=== PATIENT | male | born 1990 | race Caucasian/White ===

== ENCOUNTER 2019-12-27 11:23 | Emergency (ER) | payer OTHER, SELFPAY ==
--- NOTE | 2019-12-27 11:25 | XR_ITS ---
WS: [id number] XR hand RT min 3V* [id number] REASON FOR EXAM: injury FINDINGS: Soft tissue swelling over the hypodense seen or eminence. The phalanges, metacarpals, carpa l show no fractures. XR/XR hand RT min 3V* [id number] IMPRESSION: Tissue swelling of the hand.
[2019-12-27 12:00] VITALS: BP 131/80; PULSE 71; RESP 16; TEMP 36.6; O2SAT 99; BMI 23.6
--- NOTE | 2019-12-27 12:14 | ED_ITS ---
HPI - Extremity Problem General: Chief complaint: Extremity Injury, Upper Stated complaint: RIGHT RING FINGER PAIN Time Seen by Provider: 12/27/19 12:07 History of Present Illness: HPI Narrative: Got finger caught in a space between boards while at work today has swelling in of his finger. Complaint: extremity swelling Onset (ago): hour(s) Pain Consistency: constant Location: right Severity scale (1-10): 4 Quality: aching Radiation: none Associated symptoms: Deny chest pain, fever(s) or rash Review of Systems Const: Denies: fever, chills or body aches Eyes: Denies: change in vision or blurry vision ENMT: Denies: throat pain or nasal congestion Card: Denies: chest pain or shortness of breath on exertion Resp: Denies: shortness of breath, productive cough or non-productive cough GI: Denies: abdominal pain, nausea or vomiting : Denies: difficulty urinating Musc: Reports: extremity pain (Got #4 finger caught between the boards and it was cut the boards for about 10 minutes complains of pain to in the finger.) Skin/Breast: Denies: rash Neuro: Denies: headache Psych: Denies: anxiety or depression Desmond/Lymph: Denies: easy bruising PFSH ED PFSH: Social History Smoking and tobacco status: current every day smoker Physical Exam Const: COMMON NORMALS: no apparent distress, average body habitus and oriented x3 HENMT: COMMON NORMALS: normocephalic HEAD & SCALP: normal to inspection and normocephalic FACE & SINUS: normal facial exam Eye: COMMON NORMALS: conjunctivae normal GENERAL EYE: normal appearance of both eyes CONJUNCTIVA: Yes conjunctivae normal Neck/C-Spine: COMMON NORMALS: no JVD Chest: COMMONS NORMALS: inspection of chest normal Resp: COMMON NORMALS: normal respiratory effort and clear to auscultation bilaterally AUSCULTATION: clear to auscultation bilaterally Cardio: COMMON NORMALS: no JVD, regular rate and regular rhythm RATE: regular rate RHYTHM: regular rhythm GI: COMMON NORMALS: normal to inspection, nondistended, normoactive bowel sounds Extremity: COMMON NORMALS: full ROM NARRATIVE EXTREMITY EXAM: Has swelling to the end of #4 finger no abrasions no deformity mild tenderness no evidence of compartment syndrome presently. Neuro: COMMON NORMALS: oriented x3 Course Vital Signs: Vital signs: Vital Signs Temperature 98 F 12/27/19 12:00 Pulse Rate 71 12/27/19 12:00 Respiratory Rate 16 12/27/19 12:00 Blood Pressure 131/80 12/27/19 12:00 Pulse Oximetry 99 12/27/19 12:00 Discharge Plan Discharge Patient Disposition: Home, Self-Care Clinical Impression: Crush injury Condition: Stable Discharge Orders: Discharge Order (Routine); Ordered 12/27/19 Ordered By: Viraj Salcedo Referrals: Juanito Pop MD [Primary Care Provider] - Discharge Diet: Usual diet Discharge Activity: Increase activity as tolerated Patient Instructions: Compartment Syndrome Activity Restrictions/Additional Instructions: Off work today can return to work tomorrow with light duty not to use right hand if it is not improved significantly. Follow-up here or with company doctor if improvement does not occur. Use ice on extremity as directed. Observe for signs and symptoms of compartment syndrome. Return here if those occur. Coding Level of Care Code ED Education Courses Sales Representative for Татьяна Burger
== END 2019-12-27 12:19 | disposition home or self-care (01) ==
LOC: ER 13:51
PROVIDERS: Emergency Provider Nurse Practitioner Family; Family Provider Family Medicine; PCP Family Medicine
DX: S67.194A Crushing injury of right ring finger, initial encounter (principal); W23.0XXA Caught, crushed, jammed, or pinched between moving objects, initial encounter; F17.200 Nicotine dependence, unspecified, uncomplicated
CPT/HCPCS: 73130; 99281; 99282

== ENCOUNTER → 2020-01-04 15:53 | Outpatient (BNVA) | payer SELFPAY | PROVIDERS: Family Provider Family Medicine; PCP Family Medicine; Visit Provider Nurse Practitioner | DX: R05 Cough (principal); R50.9 Fever, unspecified | CPT/HCPCS: 87804 ==

== ENCOUNTER 2020-01-18 15:54 | Emergency (ER) | payer SELFPAY ==
[2020-01-18 16:23] VITALS: BP 125/75; PULSE 88; RESP 16; TEMP 36.8; O2SAT 100; BMI 22.1
--- NOTE | 2020-01-18 16:25 | XR_ITS ---
WS: [id number] XR chest 1V portable [id number] REASON FOR EXAM: cough/congestion FINDINGS: Comparisons were made to January 22, 2017. The heart mediastinum are normal. The lung kent are well aerated There is small granulomas in both perihilar areas. The apices are normal. XR/XR chest 1V portable [id number] IMPRESSION: Negative chest for active pathology.
[2020-01-18 20:06] VITALS: BP 119/74; PULSE 80; RESP 16; O2SAT 97
--- NOTE | 2020-01-18 21:34 | ED_ITS ---
Entered by Debra Grayson, acting as scribe for Marvin Murrieta DO Jan 18, 2020 15:54 HPI - SOB/Dyspnea General: Chief Complaint: Shortness of Breath/Dyspnea Stated Complaint: CONGESTION COUGH Time Seen by Provider: 01/18/20 21:34 Source: patient Mode of arrival: ambulatory Limitations: no limitations History of Present Illness: HPI Narrative: 29 yo m came to the er pov for shortness of breath. Onset was today. Pt states that he has been having some chest pain, cough and shortness of breath. Pt said that he had a fever last week and has not traveled anywhere recently. Pt is a smoker. MD elicited complaint: shortness of breath, cough and chest pain Context: recent illness Timing: constant Severity: mild Exacerbating factors: coughing Relieving factors: nothing Associated symptoms: Reports chest congestion, chest pain and cough; Deny abdominal pain, fever(s), nausea or vomiting Treatment prior to arrival: none Review of Systems Const: Denies: fever, chills, body aches, change in appetite, fatigue or malaise ENMT: Denies: throat pain, ear pain, nasal discharge or nasal congestion Card: Reports: chest pain Resp: Reports: productive cough and chest congestion GI: Denies: abdominal pain, nausea, vomiting, vomiting blood, coffee grounds in vomit, diarrhea, constipation, bloating, blood in stool or black tarry stool : Denies: flank pain, painful urination, urinary frequency or urinary urgency Skin/Breast: Denies: rash or itching PFSH ED PFSH: Social History Smoking and tobacco status: current every day smoker Physical Exam Const: COMMON NORMALS: average body habitus, oriented x3 and alert GENERAL APPEARANCE: cooperative, comfortable, well kempt and well developed NUTRITIONAL APPEARANCE: obese ORIENTATION/CONSCIOUSNESS: Yes awake, Yes oriented to person and Yes oriented to place HENMT: COMMON NORMALS: normocephalic, head/scalp atraumatic, EAC's normal, TM's normal bilaterally, external nose normal, moist oral mucous membranes and oropharynx normal HEAD & SCALP: normocephalic and atraumatic NOSE: external nose normal EXTERNAL AUDITORY CANAL: EAC's normal TYMPANIC MEMBRANE: TM's normal bilaterally MOUTH: oral and palatal mucosa normal, lip normal and tongue normal THROAT: posterior oropharynx normal and tonsils normal Eye: COMMON NORMALS: PERRL, EOMs intact bilaterally, conjunctivae normal and no scleral icterus CONJUNCTIVA: Yes conjunctivae normal PUPIL: Yes PERRL Neck/C-Spine: COMMON NORMALS: full ROM, no lymphadenopathy, supple, no meningeal signs and thyroid normal THYROID: thyroid normal and asymmetrical Lymph: LYMPHATIC: no lymphadenopathy noted Resp: COMMON NORMALS: normal respiratory effort, no retractions, no use of accessory muscles and clear to auscultation bilaterally AUSCULTATION: clear to auscultation bilaterally Cardio: COMMON NORMALS: regular rate and regular rhythm RATE: regular rate RHYTHM: regular rhythm HEART SOUNDS: no murmurs GI: COMMON NORMALS: normal to inspection, nondistended, normoactive bowel sounds, soft to palpation and no hepatosplenomegaly PALPATION: Yes soft and Yes no hepatosplenomegaly : COMMON NORMALS: Yes no CVA tenderness BLADDER/KIDNEY EXAM: Yes no CVA tenderness Back/Pelvis: COMMON NORMALS: no CVA tenderness LUMBAR SPINE/LOWER BACK: Yes normal to inspection Extremity: COMMON NORMALS: no clubbing, cyanosis or edema, no calf tenderness and no pedal edema Neuro: COMMON NORMALS: oriented x3 SENSORIUM/ORIENTATION: Yes alert, Yes oriented to person and Yes oriented to place MENINGEAL SIGNS: Yes no meningeal signs Psych: APPEARANCE: Yes well kempt Skin: COMMON NORMALS: no rashes or lesions noted and skin turgor normal GENERAL SKIN EXAM: no rashes or lesions noted and turgor normal Course ED course: Exam unremarkable. Believe patient is viral respiratory infection he has had it for some time previously treated with antibiotics is no evidence of active pneumonia. Has not traveled any high risk areas for COVID 19. His flu swabs are negative. We will go ahead and discharge him home and have him use supportive cares start him on Medrol Dosepak continue albuterol as needed Vital Signs: Vital signs: Vital Signs Temperature 98.0 F 01/18/20 21:38 Pulse Rate 80 01/18/20 21:38 Respiratory Rate 18 01/18/20 21:38 Blood Pressure 117/66 01/18/20 21:38 Pulse Oximetry 98 01/18/20 21:38 MDM - SOB/Dyspnea Lab Data: Labs: Lab Results 01/18/20 Range/Units 20:50 Influenza Type A A g Negative (Negative) POC Influenza B Ag Negative (Negative) Discharge Plan Discharge Patient Disposition: Home, Self-Care Clinical Impression: Viral URI with cough Condition: Stable Prescriptions: New Medrol (Gian) 4 mg tablets,dose pack See Rx Instructions .ROUTE .COMPLEX Qty: 21 RF: 0 albuterol sulfate 90 mcg/actuation HFA aerosol inhaler 2 inh INHALATION Q4H PRN (Reason: shortness of breath or wheezing) Qty: 18 RF: 0 No Action acetaminophen [Tylenol] 325 mg tablet 650 mg PO Q6H PRNRF: 0 azithromycin 250 mg tablet See Rx Instructions PO .COMPLEX Qty: 6 RF: 0 Discharge Orders: Discharge Order (Routine); Ordered 01/18/20 Ordered By: Marvin Murrieta Referrals: Juanito Pop MD [Primary Care Provider] - Discharge Diet: Usual diet Discharge Activity: Resume usual activity Discharge Date/Time: 01/18/20 21:55 Coding Level of Care Code ED Commercial Electrician for Chg Fwd Exam Comprehensive The documentation recorded by the Kenan webb Stephanie Lyn, accurately reflects the service I personally performed and the decisions made by Lit obando Curtis L, DO Jan 18, 2020 15:54
[2020-01-18 21:37] LABS: Influenza A by IFA Negative (Negative); Influenza B by IFA Negative (Negative)
[2020-01-18 21:38] VITALS: BP 117/66; PULSE 80; RESP 18; TEMP 36.7; O2SAT 98
== END 2020-01-18 21:55 | disposition home or self-care (01) ==
PROVIDERS: Physician Assistant; Emergency Provider Family Medicine; Family Provider Family Medicine; PCP Family Medicine
DX: J06.9 Acute upper respiratory infection, unspecified (principal); R05 Cough; E66.9 Obesity, unspecified; Z68.22 Body mass index [BMI] 22.0-22.9, adult; F17.200 Nicotine dependence, unspecified, uncomplicated
CPT/HCPCS: 12345; 71045; 87804; 99281; 99283

== ENCOUNTER → 2021-01-25 10:30 | Outpatient (BNVA) | payer OTHER, SELFPAY | PROVIDERS: Family Provider Family Medicine; PCP Family Medicine; Visit Provider Nurse Practitioner Family | DX: R50.9 Fever, unspecified (principal); Z20.822 Contact with and (suspected) exposure to COVID-19 | CPT/HCPCS: 87400; 87635 ==

== ENCOUNTER → 2021-07-24 13:37 | Outpatient (BNVA) | payer OTHER, SELFPAY | PROVIDERS: Family Provider Family Medicine; PCP Family Medicine; Visit Provider Nurse Practitioner Family | DX: Z20.822 Contact with and (suspected) exposure to COVID-19 (principal) | CPT/HCPCS: 87635 ==

== ENCOUNTER 2022-11-22 10:20 | Outpatient (CLI) | payer SELFPAY ==
[2022-11-22 10:53] LABS: Red Blood Count Semen Rare /hpf; Sperm Immotility 50 % (50-60); Sperm Non-Progressive Motility 10 % (5-10); Sperm Progressive Motility 40 % (31-34); Viscosity Semen High Viscosity; White Blood Count Semen Rare /hpf
== END 2022-11-22 10:21 | disposition home or self-care (01) ==
PROVIDERS: Family Provider Family Medicine; PCP Family Medicine; Visit Provider Obstetrics & Gynecology
DX: Z31.69 Encounter for other general counseling and advice on procreation (principal)
CPT/HCPCS: 80503; 89320

== ENCOUNTER 2023-01-23 20:02 | Emergency (ER) | payer OTHER, SELFPAY ==
[2023-01-23 20:14] VITALS: BP 120/68; PULSE 66; RESP 15; TEMP 36.7; O2SAT 99
--- NOTE | 2023-01-23 21:11 | ED_ITS ---
HPI - Wound/Laceration General: Chief Complaint: Wound/Laceration Stated Complaint: head injury Time Seen by Provider: 01/23/23 21:05 History of Present Illness: 32-year-old male patient comes in today with injury to the central forehead. Patient was using a pry bar which slipped cau sing it to bounce back and hit patient in the center forehead. Patient denies loss of consciousness. Patient reports no use of blood thinners. Patient does not recall his last tetanus. Patient appears nontoxic. Patient reports headache. Female significant other says he does not seem like his normal self. Patient denies any use of alcohol or other substances. Associated symptoms: Denies nausea or vomiting Review of Systems General: Reports: 10 or more systems reviewed and unremarkable except in HPI and below Card: Denies: chest pain Resp: Denies: dyspnea GI: Denies: nausea or vomiting Musc: Denies: neck pain Skin/Breast: Reports: new lesions Neuro: Reports: headache(s) PFS ED PFSH: Social History Smoking and tobacco status: current every day smoker Physical Exam Const: COMMON NORMALS: alert HENMT: COMMON NORMALS: TM's normal bilaterally and Normal external nose present HEAD & SCALP: laceration (Central forehead irregular) NOSE: Normal external nose present TYMPANIC MEMBRANE: TM's normal bilaterally MOUTH: Normal oral and palatal mucosa present Neck/C-Spine: COMMON NORMALS: full ROM CERVICAL SPINE: No Cervical spine tenderness Resp: COMMON NORMALS: normal respiratory effort Cardio: COMMON NORMALS: regular rate RATE: regular rate GI: COMMON NORMALS: non-tender Extremity: COMMON NORMALS: full ROM Neuro: SENSORIUM/ORIENTATION: Yes alert Skin: TRAUMA: laceration (1 cm central forehead) irregular Procedures Laceration Laceration 1: Site: face Size (cm): 1 Description: irregular Depth: simple, single layer Pre-repair: wound explored and irrigated extensively Skin layer closed with: other (Skin adhesive) Course Vital Signs: Vital signs: Vital Signs Temperature 98.1 F 01/23/23 20:14 Pulse Rate 70 01/23/23 21:22 Respiratory Rate 16 01/23/23 21:22 Blood Pressure 131/70 01/23/23 21:22 Pulse Oximetry 96 01/23/23 21:22 Oxygen Delivery Me thod 01/23/23 20:14 MDM - Wound/Laceration Medical Decision Making 32-year-old male patient comes in today with complaints of injury to the forehead. On exam patient has a irregular 1 cm laceration to central forehead. Pupils are equal reactive. Patient moves all extremities well. No tenderness is noted along the cervical spine. Differential diagnosis includes laceration, intracranial bleeding, skull fracture, concussion. Wound was cleaned and approximated and secured with skin adhesive. Patient tolerated well. CT of the head was negative for intracranial bleeding or skull fracture. Reviewed exam with patient with recommendations for further treatment and follow-up. Patient reported understanding along with female significant other. Lab Data Radiology Impressions Head CT 01/23/23 21:14 IMPRESSION: No acute intracranial findings. Discharge Plan Discharge Patient Disposition: Home Clinical Impression: Head injury Qualifiers: Encounter type: initial encounter Qualified Code(s): S09.90XA - Unspecified injury of head, initial encounter Laceration of skin of forehead Qualifiers: Encounter type: initial encounter Qualified Code(s): S01.81XA - Laceration without foreign body of other part of head, initial encounter Condition: Stable Prescriptions: No Action acetaminophen [Tylenol] 325 mg tablet 650 mg PO Q6H PRN Label Comments: Pt states he takes 3 tabs buprenorphine HCl 8 mg tablet, sublingual 8 mg sublingual DAILY Discharge Orders: Discharge ED (Routine); Ordered 01/23/23 Ordered By: Home Marshall Discharge Diet: Usual diet Discharge Activity: Increase activity as tolerated Patient Instructions: Head Injury (ED), Skin Adhesive Care (ED) Activity Restrictions/Additional Instructions: Activity as tolerated. Drink plenty of water. Use acetaminophen and ibuprofen for pain. Follow-up with primary care as needed. Return to ED for new concerns. Keep skin warm and dry for the next 48 hours to the wound. Allow skin adhesive to come off on its own. Monitor site for signs of infection such as fever, increased redness and swelling, or new concerns. Coding Level of Care Code ED Women'S Studies Lecturer for Татьяна Burger
--- NOTE | 2023-01-23 21:14 | CTR_ITS ---
PROCEDURE INFORMATION: Exam: CT Head Without Contrast Exam date and time: 01/23/2023 9:25 PM Age: 32 years old Clinical indication: Injury or trauma; Blunt trauma (contusions or hematomas); Patient HX: Accidental blow to frontal from a prybar while changing a tire. C/O frontal MEADOWS. Small lac just superior to nasion. ; Additional info: Head injury, worsening MEADOWS TECHNIQUE: Imaging protocol: Computed tomography of the head without contrast. Radiation optimization: All CT scans at this facility use at least one of these dose optimization techniques: automated exposure control; mA and/or kV adjustment per patient size (includes targeted exams where dose is matched to clinical indication); or iterative reconstruction. REPORTING DATA: Count of CT and Cardiac NM exams in prior 12 months: This patient has received 0 known CTs and 0 known cardiac nuclear medicine studies in the 12 months prior to the current study. COMPARISON: CT cervical spin wo con* [id number] 10/21/2018 12:29 PM RADIATION DOSE METRICS: Total DLP (mGy-cm): 1142.78 FINDINGS: Brain: Normal. No hemorrhage. Unremarkable white matter. No mass effect. Cerebral ventricles: No ventriculomegaly. Paranasal sinuses: Minimal ethmoid sinus opacification. No air-fluid level otherwise. Mastoid air cells: Visualized mastoid air cells are well aerated. Bones/joints: Unremarkable. No acute fracture. Soft tissues: Unremarkable. CT/CT head wo con* [id number] IMPRESSION: No acute intracranial findings.
[2023-01-23 21:22] VITALS: BP 131/70; PULSE 70; RESP 16; O2SAT 96
[2023-01-23] MEDS: tetanus-dipt-pertussis 0.5 mL SDV IM (21:35)
[2023-01-23 22:33] VITALS: BP 111/69; PULSE 54; RESP 16; O2SAT 97
--- NOTE | 2023-01-25 14:49 | DCPLANNER ---
Addendum entered by Lisa Tavarez 01/30/23 12:11: assistant manager trainee called patient due to no primary care physician - no answer at this time Original Note: assistant manager trainee called patient due to no primary care physician - no answer at this time
== END 2023-01-23 22:35 | disposition home or self-care (01) ==
PROVIDERS: Emergency Provider Nurse Practitioner Family
DX: S01.81XA Laceration without foreign body of other part of head, initial encounter (principal); S09.90XA Unspecified injury of head, initial encounter; F17.210 Nicotine dependence, cigarettes, uncomplicated; W20.8XXA Other cause of strike by thrown, projected or falling object, initial encounter; Z23 Encounter for immunization
CPT/HCPCS: 12011; 70450; 90471; 90715; 99284

== ENCOUNTER 2024-08-25 16:13 | Emergency (ER) | payer SELFPAY ==
[2024-08-25 16:16] VITALS: BP 115/71; PULSE 60; RESP 16; TEMP 36.7; O2SAT 97; BMI 23.6
--- NOTE | 2024-08-25 17:13 | ED_ITS ---
HPI - Back Pain/Injury General: Chief Complaint: Back Pain/Injury Stated Complaint: left leg/lower back pain Time Seen by Provider: 08/25/24 17:02 Source: patient Mode of arrival: ambulatory Limitations: no limitations History of Present Illness: Patient is a 34-year-old male who presents the emergency department complaining of left lower back pain onset the past couple weeks. He noticed it Saturday before last, states it acutely worsened last Saturday as he thinks he overdid it at work where he is constantly exerting himself and lifting heavy. He has been using heat pads and has been stretching, reports minimal relief. He notes pain with any range of motion, states it does feel better when he lies flat but it has been hard to get out of bed. He has no distal numbness weakness or paresthesias. No bowel or bladder incontinence. States he has vomited once, but believes he caught a viral bug from family member. Pain is reported to radiate down the left leg above the knee, denies personal history of sciatica. MD elicited complaint: back pain Onset (ago): week(s) Timing: constant and progressively worsening Severity: severe Location: left lower back Radiation: left upper leg Exacerbating factors: movement Relieving factors: supine Associated symptoms: Reports vomiting; Deny chills or fever(s) Treatments prior to arrival: heat therapy Related Data Home Medications Medication Instructions Recorded Confirmed acetaminophen 325 mg tablet 650 mg PO Q6H PRN 01/04/20 04/19/23 (Tylenol) buprenorphine HCl 8 mg sublingual 8 mg sublingual DAILY 01/25/21 04/19/23 tablet Previous Rx's Medication Instructions Recorded doxycycline hyclate 100 mg tablet 100 mg PO BID 7 days #14 tabs 04/19/23 ketorolac 10 mg tablet 10 mg PO Q8H PRN pain #15 tabs 08/25/24 methocarbamol 750 mg tablet 750 mg PO Q8H 5 days #15 tabs 08/25/24 prednisone 20 mg tablet 60 mg (3 x 20 mg) PO ONCE 5 days 08/25/24 #15 tabs Allergies Allergy/AdvReac Type Severity Reaction Status Date / Time aripiprazole [From Abilify] Allergy ADR-Halluci Verified 04/19/23 14:34 nating haloperidol [From Haldol] Allergy ADR-Halluci Verified 04/19/23 14:34 nating risperidone [From Risperdal] Allergy ADR-Halluci Verified 04/19/23 14:34 nating Sulfa (Sulfonamide Allergy ALGY-Hives Verified 04/19/23 14:34 Antibiotics) Review of Systems General: Reports: 10 or more systems reviewed and unremarkable except in HPI and below Const: Denies: fever(s) or chills Card: Denies: chest pain Resp: Denies: dyspnea or productive cough GI: Reports: vomiting : Denies: flank pain Musc: Reports: back pain, extremity pain and limited range of motion; Denies: neck pain, extremity swelling, joint pain, joint swelling, joint redness, joint warmth or muscle weakness Skin/Breast: Denies: rash Neuro: Denies: headache(s), numbness in extremities or weakness in extremities PFSH ED PFSH: Social History Smoking and tobacco/nicotine status: current every day tobacco/nicotine user Physical Exam Const: COMMON NORMALS: no acute distress, patient oriented x3, no limitations, healthy appearing, alert and well nourished HENMT: COMMON NORMALS: normocephalic and atraumatic HEAD & SCALP: normocephalic and atraumatic Neck/C-Spine: COMMON NORMALS: full ROM, supple and no meningeal signs Resp: COMMON NORMALS: normal respiratory effort, No use of accessory muscles and clear to auscultation bilaterally AUSCULTATION: clear to auscultation bilaterally Cardio: COMMON NORMALS: regular rate and regular rhythm RATE: regular rate RHYTHM: regular rhythm Back/Pelvis: OTHER: Mild reproducible tenderness to palpation of the left paralumbar muscles. No spinous process tenderness. No signs of trauma. Under range of motion due to the pain. Positive straight leg raise on the left. Extremity: COMMON NORMALS: normal to inspection, full ROM, capillary refill normal, no joint enlargement and no clubbing, cyanosis or edema Neuro: COMMON NORMALS: patient oriented x3, moves all extremities, no focal motor deficits and no sensory deficits noted SENSORIUM/ORIENTATION: Yes alert MENINGEAL SIGNS: Yes no meningeal signs Skin: COMMON NORMALS: no rashes or lesions noted GENERAL SKIN EXAM: no rashes or lesions noted Course Vital Signs: Vital signs: Vital Signs Temperature 98.1 F 10/22/24 16:16 Pulse Rate 60 08/25/24 16:16 Respiratory Rate 16 08/25/24 16:16 Blood Pressure 115/71 08/25/24 16:16 Pulse Oximetry 97 08/25/24 16:16 Oxygen Delivery Me thod Room Air 08/25/24 16:16 MDM - Back Pain/Injury Medical Decision Making Atraumatic left lower back pain with radiation down the left leg was reported. No history of sciatica. He did have positive straight leg raise testing on the left and this did appear as a clinical picture of sciatica. No imaging warranted at this time, he had no red flag back symptoms to report. He does report relief after receiving Toradol, Decadron, and Norflex IM. Because of this we will encourage him to use work note for limited responsibilities and no further strenuous exertion while symptomatic, and will prescribe short course of steroids and muscle relaxers. Encouraged to follow-up with primary care with any further complaints for further evaluation. No radiology studies performed this visit Discharge Plan Discharge Patient Disposition: Home Clinical Impression: Sciatica Qualifiers: Laterality: left Qualified Code(s): M54.32 - Sciatica, left side Condition: Stable Prescriptions: New prednisone 20 mg tablet 60 mg PO ONCE 5 Days Qty: 15 0RF ketorolac 10 mg tablet 10 mg PO Q8H PRN (Reason: pain) Qty: 15 0RF methocarbamol 750 mg tablet 750 mg PO Q8H 5 Days Qty: 15 0RF No Action acetaminophen [Tylenol] 325 mg tablet 650 mg PO Q6H PRN Patient Comments: Pt states he takes 3 tabs buprenorphine HCl 8 mg tablet, sublingual 8 mg sublingual DAILY lidocaine (PF) 10 mg/mL (1 %) solution 10 mg SUBCUT ONCE Qty: 1 0RF doxycycline hyclate 100 mg tablet 100 mg PO BID 7 Days Qty: 14 0RF Discharge Orders: Discharge ED (Routine); Ordered 08/25/24 Ordered By: Jesus Luis Discharge Diet: As Directed Discharge Activity: Limit activity as instructed Patient Instructions: Sciatica (ED) Activity Restrictions/Additional Instructions: Work note provided. Take medications as prescribed. Continue using heat and other therapeutic remedies as discussed. Follow-up with primary care with any persistence of pain. Return with any new concerning symptoms. Stand Alone Forms: Work/School Release Coding Level of Care Code ED Sales Associate Key Holder for Татьяна Burger
[2024-08-25] MEDS: orphenadrine 30 mg/mL Inj 2 mL 60 MG IM (17:21)
[2024-08-25] MEDS: dexamethasone 10 mg/mL INJ IM (17:22)
[2024-08-25] MEDS: ketorolac 60 mg/2 mL INJ IM (17:22)
== END 2024-08-25 18:14 | disposition home or self-care (01) ==
PROVIDERS: Emergency Provider Physician Assistant
DX: M54.32 Sciatica, left side (principal); R11.10 Vomiting, unspecified
CPT/HCPCS: 96372; 99284; J1100; J1885; J2360

== ENCOUNTER 2025-04-30 17:59 | Emergency (ER) | payer OTHER, SELFPAY ==
[2025-04-30 18:02] VITALS: BP 116/74; PULSE 68; RESP 16; TEMP 36.7; O2SAT 97; BMI 22.1
--- NOTE | 2025-04-30 18:32 | ED_ITS ---
HPI - Wound/Laceration 2 General: Chief Complaint: Wound/Laceration Stated Complaint: lac on head Time Seen by Provider: 04/30/25 18:13 History of Present Illness: Patient is a 34-year-old gentleman that reports here from work with injury. He was working, and a shelf of wheels fell on his head. He had no LOC. He has a laceration to his left frontal head. Denies anticoagulation. This occurred just prior to arrival. Patient did have corneal abrasion yesterday, however has no complaints at this time other than the ongoing eyelid slight edema. Associated symptoms: Denies chills, fever(s), nausea or vomiting Related Data Home Medications ?Medication ?Instructions ?Recorded ?Confirmed acetaminophen 325 mg tablet 650 mg PO Q6H PRN 01/04/20 04/29/25 (Tylenol) buprenorphine HCl 8 mg sublingual 8 mg sublingual PURNIMA Y 01/25/21 04/29/25 tablet Previous Rx's ?Medication ?Instructions ?Recorded cephalexin 500 mg capsule 500 mg PO TID 7 days #21 cap s 03/11/25 cephalexin 500 mg capsule 500 mg PO BID 2 days #4 caps 04/30/25 Allergies Allergy/AdvReac Type Severity Reaction Status Date / Time aripiprazole (From Abilify) Allergy ADR-Halluci Verified 04/30/25 18:06 nating haloperidol (From Haldol) Allergy ADR-Halluci Verified 04/30/25 18:06 nating risperidone (From Risperdal) Allergy ADR-Halluci Verified 04/30/25 18:06 nating Sulfa (Sulfonamide Allergy ALGY-Hives Verified 04/30/25 18:06 Antibiotics) Review of Systems 2 Const: Denies: fever(s), chills or change in appetite Eyes: Denies: change in vision or blurry vision Card: Denies: chest pain or palpitations Resp: Denies: dyspnea or productive cough GI: Denies: abdominal pain, nausea or vomiting : Denies: flank pain or difficulty urinating Musc: Denies: neck pain or back pain Neuro: Reports: headache(s); Denies: lack of coordination, difficulty walking or vertigo Psych: Denies: anxiety or depression Desmond/Lymph: Denies: easy bruising or easy bleeding PFSH ED 2 PFSH: Social History Smoking and tobacco/nicotine status: current every day tobacco/nicotine user Physical Exam 2 Const: COMMON NORMALS: patient oriented x3 HENMT: COMMON NORMALS: external ears normal HEAD & SCALP: laceration left frontal Details of head laceration: linear and stellate Head laceration size: 8 cm; no occipital foramen tenderness and no palpable skull fracture FACE & SINUS: normal facial exam FACE & SINUS IMAGES: 1. laceration EXTERNAL EAR: Yes external ears normal Neck/C-Spine: COMMON NORMALS: full ROM and no lymphadenopathy Lymph: LYMPHATIC: no lymphadenopathy noted Chest: COMMONS NORMALS: normal inspection of the chest Resp: COMMON NORMALS: normal respiratory effort and clear to auscultation bilaterally AUSCULTATION: clear to auscultation bilaterally Cardio: COMMON NORMALS: regular rate and regular rhythm RATE: regular rate RHYTHM: regular rhythm GI: COMMON NORMALS: Normal to inspection, nondistended, normoactive bowel sounds present, Soft to palpation and non-tender PALPATION: Yes Soft to palpation : COMMON NORMALS: Yes no CVA tenderness BLADDER/KIDNEY EXAM: Yes no CVA tenderness Back/Pelvis: COMMON NORMALS: no CVA tenderness Extremity: COMMON NORMALS: normal to inspection, full ROM and capillary refill normal Neuro: COMMON NORMALS: patient oriented x3, CN's II-XII intact bilaterally and moves all extremities Psych: COMMON NORMALS: Normal thought process present, cooperative and speech normal ATTITUDE: Yes agitated SPEECH: Yes normal speech THOUGHT PROCESS: Normal thought process present Skin: NARRATIVE SKIN EXAM: see laceration Procedures Laceration Laceration 1: Site: scalp (left posterior occiput) Size (cm): 5 Description: linear Depth: simple, single layer Local Anesthetic: lidocaine 1% Amount of anesthesia used (mL): 3 Pre-repair: wound explored and irrigated extensively Skin layer closed with: other (staple x8) Size (cm): other (staple) Number of sutures: 8 Technique: other (staple) Course 2 Vital Signs: Vital signs: Vital Signs Temperature 98.0 F 04/30/25 18:02 Pulse Rate 68 04/30/25 18:02 Respiratory Rate 16 04/30/25 18:02 Blood Pressure 116/74 04/30/25 18:02 Pulse Oximetry 97 04/30/25 18:02 Oxygen Delivery Me thod Room Air 04/30/25 18:02 MDM - Wound/Laceration Medical Decision Making Patient is a 34-year-old gentleman that was working, and had wheels fall off a shelf, knocking him forward, and causing laceration in the left frontal area of the scalp. He had a significant history however no LOC. He was checked with cranial nerves II through XII, and also noted normal smells, and no deficiencies were found. PERRLA. No long bone injury. No reason to proceed with CT of the head and neck since there is no midline tenderness on the cervical spine either. This area was stapled, and patient given directions on removing malia and care. All radiology interpretation(s) finalized by discharge Discharge Plan Discharge Patient Disposition: Home Clinical Impression: Laceration of scalp Qualifiers: Encounter type: initial encounter Qualified Code(s): S01.01XA - Laceration without foreign body of scalp, initial encounter Condition: Stable Prescriptions: New cephalexin 500 mg capsule 500 mg PO BID 2 Days Qty: 4 0RF No Action acetaminophen [Tylenol] 325 mg tablet 650 mg PO Q6H PRN Patient Comments: Pt states he takes 3 tabs buprenorphine HCl 8 mg tablet, sublingual 8 mg sublingual DAILY lidocaine (PF) 10 mg/mL (1 %) solution 10 mg SUBCUT ONCE Qty: 1 0RF cephalexin 500 mg capsule 500 mg PO TID 7 Days Qty: 21 0RF Discharge Orders: Discharge ED (Routine); Ordered 04/30/25 Ordered By: Flaca Farley Discharge Diet: Usual diet Discharge Activity: Resume usual activity Patient Instructions: Concussion (ED), Staple Care (ED), Patient Portal & [facility] Instructions Activity Restrictions/Additional Instructions: Remove malia in 7-10 days Follow concussion protocol. Return to ED with nausea and vomiting refractory. Wash hair daily. Follow instructions above. Stand Alone Forms: Work/School Release Print Language: Arabic Coding Level of Care Code ED Apartment Groundskeeper for Татьяна Burger
--- NOTE | 2025-05-05 07:46 | DCPLANNER ---
Patient needs PCP sent message to Clinics -Patient is a 34-year-old gentleman that was working, and had wheels fall off a shelf, knocking him forward, and causing laceration in the left frontal area of the scalp. He had a significant history however no LOC. He was checked with cranial nerves II through XII, and also noted normal smells, and no deficiencies were found. PERRLA. No long bone injury. No reason to proceed with CT of the head and neck since there is no midline tenderness on the cervical spine either. This area was stapled, and patient given directions on removing malia and care. All radiology interpretation(s) finalized by discharge
== END 2025-04-30 20:00 | disposition home or self-care (01) ==
PROVIDERS: Emergency Provider Physician Assistant
DX: S01.01XA Laceration without foreign body of scalp, initial encounter (principal); Z72.0 Tobacco use; W19.XXXA Unspecified fall, initial encounter
CPT/HCPCS: 12002; 99282

== ENCOUNTER 2025-05-11 07:49 | Outpatient (CLI) | payer OTHER, SELFPAY ==
--- NOTE | 2025-05-11 08:00 | CT_ITS ---
WS: [id number] CT HEAD TECHNIQUE: Noncontrast CT of the head obtained from the skullbase to the vertex. CLINICAL INFORMATION: continued head injury symptoms COMPARISON: 2022 DLP: 1047.[address] scans at [facility] use at least one of these dose optimization techniques: automated exposure control; mA and/or kV adjustment per patient size (includes targeted exams where dose is matched to clinical indication); or iterative reconstruction. FINDINGS: No evidence of intracranial hemorrhage or mass effect. Ventricular system and basal cisterns are patent. No extra-axial fluid collections. No evidence of mass or mass effect. Normal doss-white differentiation. Paranasal sinuses and mastoid air cells are well aerated. .Scalp malia visualized over the LEFT parietal convexity. CT/CT head wo con* [id number] IMPRESSION: 1. No evidence of intracranial hemorrhage or mass effect. 2. No acute intracranial findings.
== END 2025-05-11 07:50 | disposition home or self-care (01) ==
LOC: RAD 07:49
PROVIDERS: Visit Provider Emergency Medicine
DX: S06.0X0A Concussion without loss of consciousness, initial encounter (principal); X58.XXXA Exposure to other specified factors, initial encounter
CPT/HCPCS: 70450